=== PATIENT | female | born 1970 | race Caucasian/White ===

== ENCOUNTER 2018-08-23 21:57 | Emergency (ER) | payer OTHER ==
--- NOTE | 2018-08-23 22:11 | ED Physician Documentation ---
PD HPI OPHTHO - Stated complaint Stated Complaint: R EYE VISION CHANGED - Chief complaint Chief Complaint: Heent - History obtained from History obtained from: Patient - History of Present Illness Timing - onset: How many days ago (3) Timing - duration: Days Timing - details: Gradual onset Location: Right Quality / character: No: Itching, Burning, Aching, Throbbing, Sharp Associated symptoms: Decreased vision. No: Redness, Swelling, Photophobia, Double vision, Headache Contributing factors: Wears glasses. No: FB, UV light (welding etc), Blunt trauma, Wears contacts Similar symptoms before: No: Has not had sx before Recently seen: Clinic - Additional information Additional information: c/o increasing visual loss right eye. this started 3 days ago on August 20 when she noticed small area of blurred vision limited to small area in lower field of vision, right eye only. this was still present the next day and gradually progressed in severity (appears opaque lo, not just blurry) and area involved (all of the right eyes lower visual field up to mid-level). denies headache, denies pain, denies any other neurological signs or symptoms such as numbness, weakness. she was evaluated by ophthalmolgy yesterday, Dr. Hamm. his note (brought to ED by patient) indicates no RAPD, no retinal detachment, no RVO and recommends MRI R[facility]. patient says symptoms have neither improved nor worsened since yesterday but she is planning on flying back home to [place] tomorrow and was hoping to get MRI at this time Review of Systems Constitutional: reports: Reviewed and negative Eyes: reports: Loss of vision, Decreased vision. denies: Photophobia, Discharge, Irritation Ears: reports: Reviewed and negative Nose: reports: Reviewed and negative Cardiac: reports: Reviewed and negative Respiratory: reports: Reviewed and negative Musculoskeletal: reports: Reviewed and negative Neurologic: reports: Reviewed and negative PD PAST MEDICAL HISTORY - Past Medical History Past Medical History: Yes Cardiovascular: Hypertension - Present Medications Home Medications: Ambulatory Orders Medication Instructions Recorded Confirmed Benazepril HCl 08/23/18 - Allergies Allergies/Adverse Reactions: Allergies Allergy/AdvReac Type Severity Reaction Status Date / Time methimazole [From Tapazole] Allergy Hives Verified 08/23/18 22:10 Penicillins AdvReac Rash Verified 08/23/18 22:10 - Social History Does the pt smoke?: No PD ED PE NORMAL - Vitals Vital signs reviewed: Yes - General General: Alert and oriented X 3, No acute distress, Well developed/nourished - HEENT HEENT: Atraumatic, PERRL, EOMI, Moist mucous membranes, Other (no scalp tenderness including over temporal artery) - Neck Neck: Supple, no meningeal sign - Cardiac Cardiac: RRR, No murmur - Respiratory Respiratory: No respiratory distress, Clear bilaterally - Derm Derm: No rash - Neuro Neuro: Alert and oriented X 3, No motor deficit, No sensory deficit, Normal speech, Other (complete visual field cut right eye only lower field bilaterally (when [id number], she says she can see my forehead and above, including both upper corners of the room, but not from my eyes down (this is with left eye covered; with right eye covered, she has all four quadrants intact by confrontation and counting fingers in periphery of vision)) Eye Opening: Spontaneous Motor: Obeys Commands Verbal: Oriented GCS Score: 15 Results - Vitals Vitals: Oxygen O2 Source Room air - Labs Labs: Laboratory Tests 08/23/18 08/23/18 08/23/18 23:05 23:05 23:05 WBC 7.6 RBC 4.25 Hgb 12.5 Hct 38.8 MCV 91.3 MCH 29.4 MCHC 32.2 RDW 12.4 Plt Count 223 MPV 10.9 H Neut # (Auto) 4.0 Lymph # (Auto) 2.8 [place] # (Auto) 0.5 Eos # (Auto) 0.2 Baso # (Auto) 0.0 Absolute Nucleated RBC 0.00 Nucleated RBC % 0.0 ESR 7 Sodium 139 Potassium 3.5 Chloride 101 Carbon Dioxide 26 Anion Gap 12.0 BUN 15 Creatinine 0.8 Estimated GFR (MDRD) 77 L Glucose 99 Calcium 9.9 C-Reactive Protein < 1.0 - Rads (name of study) CT head angio Radiology: Prelim report reviewed, See rad report CT neck angio Radiology: Prelim report reviewed, See rad report PD MEDICAL DECISION MAKING - ED course Complexity details: reviewed results, re-evaluated patient, considered differential, d/w patient ED course: D/W on-call ophthalmology for [place] (Dr. Mane), including results of blood tests and CTs. recommends outpatient MRI brain w/w/o as soon as can be arranged and f/u with neuro-ophthalmology. Departure - Departure Disposition: 01 Home, Self Care Clinical Impression: Vision loss Condition: Good Health Concerns: vision loss Plan of Treatment: follow up with PCP, return if worse Care Goals: further testing as needed to diagnose and treat cause of symptoms Assessment: see diagnosis Instructions: ED Blurred Vision Comments: You will need further testing. If your symptoms become worse in any way, go to the nearest emergency department for reevaluation. Otherwise, contact your primary care provider as soon as they open on Saturday to arrange for immediate follow up. The soft work cigar machine operator I spoke to beto recommends that you have an MRI and follow up with neuro-ophthalmology Discharge Date/Time: 08/24/18 02:17
[2018-08-23 23:15] LABS: BASOPHILS % (AUTO) 0.5 %; EOSINOPHILS # (AUTO) 0.2 10^3/uL (0.0-0.7); HGB - HEMOGLOBIN 12.5 g/dL (12.0-16.0); LYMPHOCYTES # (AUTO) 2.8 10^3/uL (1.5-3.5); LYMPHOCYTES % (AUTO) 37.3 %; MEAN CORPUSCULAR HEMOGLOBIN 29.4 pg (27.0-31.0); MEAN CORPUSCULAR HGB CONC 32.2 g/dL (32.0-36.0); MEAN CORPUSCULAR VOLUME 91.3 fL (81.0-99.0); MEAN PLATELET VOLUME 10.9 fL (7.9-10.8); MONOCYTES # (AUTO) 0.5 10^3/uL (0.0-1.0); MONOCYTES % (AUTO) 6.6 %; NEUTROPHILS % (AUTO) 53.3 %; PLT - PLATELET COUNT 223 10^3/uL (130-450); RED BLOOD COUNT 4.25 10^6/uL (4.20-5.40); RED CELL DISTRIBUTION WIDTH 12.4 % (12.0-15.0); WHITE BLOOD COUNT 7.6 x10^3/uL (4.8-10.8)
[2018-08-23 23:37] LABS: BUN - BLOOD UREA NITROGEN 15 mg/dL (6-20); CALCIUM 9.9 mg/dL (8.5-10.3); CARBON DIOXIDE - CO2 26 mmol/L (21-32); CHLORIDE 101 mmol/L (101-111); CREATININE 0.8 mg/dL (0.4-1.0); GFR - MDRD 77 (>89); GLUCOSE 99 mg/dL (70-100); SODIUM 139 mmol/L (135-145)
[2018-08-23 23:45] LABS: CRP - C-REACTIVE PROTEIN < 1.0 mg/dL (0-1.0)
[2018-08-24] MEDS ORDERED: IOVERSOL 320 100 ML VIAL IVP ONE ×2 (00:09→00:43)
--- NOTE | 2018-08-24 01:25 | CT Report ---
Reason: right eye visual loss Procedure Date: 08/24/2018 Accession Number: [id number] / [id number] Procedure: CT - ANGIO HEAD W CPT Code: FULL RESULT: EXAM: CT ANGIOGRAM HEAD AND NECK. CT SCAN HEAD WITHOUT AND WITH CONTRAST. EXAM DATE: 08/24/2018 12:39 AM. CLINICAL HISTORY: Right eye visual loss. COMPARISON: None. TECHNIQUE: Routine axial helical CTA imaging was performed from the aortic arch through the [place]. Routine axial CT imaging of the head was performed prior to and following contrast administration. Reconstructions: Routine multiplanar 3D MIP reconstructions. IV contrast: OPTI 320 80ML. NASCET Criteria are used for stenosis measurements. In accordance with CT protocol optimization, one or more of the following dose reduction techniques were utilized for this exam: automated exposure control, adjustment of mA and/or KV based on patient size, or use of iterative reconstructive technique. FINDINGS: CT SCAN HEAD: Parenchyma: No intraparenchymal hemorrhage. No evidence of mass, midline shift, or CT findings of acute infarction. Valle-white differentiation is distinct. No abnormal brain parenchymal enhancement is appreciated on postcontrast images. Extra-axial Spaces: Normal for age. No subdural or epidural collections identified. Ventricles: Normal in size and position. Sinuses and Orbits: Imaged paranasal sinuses, orbits, and mastoids show no significant abnormality. Bones: No evidence of fracture or calvarial defect. CT ANGIOGRAM EXTRACRANIAL CIRCULATION: The visualized arch is unremarkable. Great vessels are patent and unremarkable. Right Carotid: The common carotid, internal carotid, and external carotid arteries are widely patent. No dissection, significant atherosclerotic plaque, or calcification identified. Left Carotid: The common carotid, internal carotid, and external carotid arteries are widely patent. No dissection, significant atherosclerotic plaque, or calcification identified. Vertebrals: The vertebrobasilar system shows no stenosis, dissection, aneurysm, or significant atherosclerotic disease. The vertebral arteries are codominant. CT ANGIOGRAM INTRACRANIAL CIRCULATION: The internal carotid arteries are patent from the superior cervical to the supraclinoid portions. Minimal calcified plaque is noted in the bilateral carotid siphons without stenosis. The bilateral A1, A2, M1, M2 segments are patent. A normal caliber anterior communicating artery is present. In the posterior circulation, the bilateral V4 segments are patent. A left AICA/PICA variant is present. The right PICA is well demonstrated. The basilar artery is widely patent throughout its course to the terminus. There is normal contrast opacification in the superior cerebellar and posterior cerebral arteries. Posterior communicating arteries are not clearly seen. The dural venous sinuses are patent. Other: The visualized bones, soft tissues, and lung apices are unremarkable. IMPRESSION: 1. No acute intracranial process or abnormal brain parenchymal enhancement. 2. Patent dural venous sinuses. 3. Unremarkable CTA of the head and neck. RADIA
--- NOTE | 2018-08-24 01:26 | CT Report ---
Reason: right eye visual loss Procedure Date: 08/24/2018 Accession Number: [id number] / [id number] Procedure: CT - ANGIO NECK W/WO CPT Code: FULL RESULT: EXAM: CT ANGIOGRAM HEAD AND NECK. CT SCAN HEAD WITHOUT AND WITH CONTRAST. EXAM DATE: 08/24/2018 12:39 AM. CLINICAL HISTORY: Right eye visual loss. COMPARISON: None. TECHNIQUE: Routine axial helical CTA imaging was performed from the aortic arch through the [place]. Routine axial CT imaging of the head was performed prior to and following contrast administration. Reconstructions: Routine multiplanar 3D MIP reconstructions. IV contrast: OPTI 320 80ML. NASCET Criteria are used for stenosis measurements. In accordance with CT protocol optimization, one or more of the following dose reduction techniques were utilized for this exam: automated exposure control, adjustment of mA and/or KV based on patient size, or use of iterative reconstructive technique. FINDINGS: CT SCAN HEAD: Parenchyma: No intraparenchymal hemorrhage. No evidence of mass, midline shift, or CT findings of acute infarction. Valle-white differentiation is distinct. No abnormal brain parenchymal enhancement is appreciated on postcontrast images. Extra-axial Spaces: Normal for age. No subdural or epidural collections identified. Ventricles: Normal in size and position. Sinuses and Orbits: Imaged paranasal sinuses, orbits, and mastoids show no significant abnormality. Bones: No evidence of fracture or calvarial defect. CT ANGIOGRAM EXTRACRANIAL CIRCULATION: The visualized arch is unremarkable. Great vessels are patent and unremarkable. Right Carotid: The common carotid, internal carotid, and external carotid arteries are widely patent. No dissection, significant atherosclerotic plaque, or calcification identified. Left Carotid: The common carotid, internal carotid, and external carotid arteries are widely patent. No dissection, significant atherosclerotic plaque, or calcification identified. Vertebrals: The vertebrobasilar system shows no stenosis, dissection, aneurysm, or significant atherosclerotic disease. The vertebral arteries are codominant. CT ANGIOGRAM INTRACRANIAL CIRCULATION: The internal carotid arteries are patent from the superior cervical to the supraclinoid portions. Minimal calcified plaque is noted in the bilateral carotid siphons without stenosis. The bilateral A1, A2, M1, M2 segments are patent. A normal caliber anterior communicating artery is present. In the posterior circulation, the bilateral V4 segments are patent. A left AICA/PICA variant is present. The right PICA is well demonstrated. The basilar artery is widely patent throughout its course to the terminus. There is normal contrast opacification in the superior cerebellar and posterior cerebral arteries. Posterior communicating arteries are not clearly seen. The dural venous sinuses are patent. Other: The visualized bones, soft tissues, and lung apices are unremarkable. IMPRESSION: 1. No acute intracranial process or abnormal brain parenchymal enhancement. 2. Patent dural venous sinuses. 3. Unremarkable CTA of the head and neck. RADIA
[2018-08-24 02:17] VITALS: BP 133/94
== END 2018-08-24 02:17 | disposition home or self-care (01) ==
LOC: ED 21:57
DX: H54.61 Unqualified visual loss, right eye, normal vision left eye (principal); I10 Essential (primary) hypertension
CPT/HCPCS: 36415; 70496; 70498; 80048; 85025; 85651; 86140; 99282; 99283; Q9967